=== PATIENT | female | born 1990 | race Caucasian/White ===

== ENCOUNTER 2022-03-19 09:45 | Emergency (ER) | payer BC, MEDICAID ==
[~2022-03-19] VITALS: Ht 165.1 cm; Wt 95.5 kg
[2022-03-19 10:04] VITALS: BP 131/88
[2022-03-19] MEDS ORDERED: PROP10TA10 PO (10:48)
[2022-03-19] MEDS ORDERED: TRAZ-251 PO (10:48)
[2022-03-19] MEDS ORDERED: PRESTIQUE PO (10:48)
[2022-03-19 10:56] LABS: BASOPHILS # (AUTO) 0.1 X10'3 (0-0.2); BASOPHILS % (AUTO) 0.7 % (0-1); EOSINOPHILS % (AUTO) 0.6 % (0-6); HEMATOCRIT 40.2 % (35.0-45.0); HEMOGLOBIN 13.4 g/dl (12.0-16.0); LYMPHOCYTES % (AUTO) 23.5 % (21-51); MEAN CORPUSCULAR HEMOGLOBIN 26.8 PG (27.0-31.0); MEAN CORPUSCULAR HGB CONC 33.3 g/dL (33.0-36.5); MEAN CORPUSCULAR VOLUME 80.5 FL (78-98); MEAN PLATELET VOLUME 8.3 FL (7.4-10.4); MONOCYTES # (AUTO) 0.3 X10'3 (0-0.9); NEUTROPHILS % (AUTO) 71.2 % (42-75); PLATELET COUNT 311 X10'3 (140-440); RED CELL DISTRIBUTION WIDTH 13.9 % (11.5-14.5); WHITE BLOOD COUNT 8.4 X10'3 (4.5-11.0)
[2022-03-19 11:13] LABS: ALANINE AMINOTRANSFERASE 14 U/L (12-78); ALBUMIN/GLOBULIN RATIO 0.7 (1.1-1.5); ALKALINE PHOSPHATASE 76 IU/L (46-116); ANION GAP 9 (8-16); ASPARTATE AMINO TRANSFERASE 14 U/L (10-37); BILIRUBIN,TOTAL 0.2 MG/DL (0.1-1.0); BLOOD UREA NITROGEN 7 MG/DL (7-18); BUN/CREATININE RATIO 9.6 (6.6-38.0); CALCIUM 8.4 MG/DL (8.5-10.1); CHLORIDE 105 MMOL/L (99-107); CREATININE 0.73 MG/DL (0.40-0.90); GLUCOSE 96 MG/DL (70-104); SODIUM 139 MMOL/L (135-145); TOTAL CARBON DIOXIDE 24.6 MMOL/L (24-32); TOTAL PROTEIN 7.1 G/DL (6.4-8.2); eGFR > 90 ML/MIN
[2022-03-19] MEDS ORDERED: propranolol LA 60 MG cap.SA.24H PO SCH (17:00)
[2022-03-19] MEDS ORDERED: propranolol 10mg tablet PO SCH (17:06)
[2022-03-19 17:14] LABS: URINE HCG NEGATIVE (NEG)
[2022-03-19 17:23] LABS: URINE AMPHETAMINE SCREEN NEGATIVE (Neg); URINE BARBITUATE SCREEN NEGATIVE (Neg); URINE BENZODIAZEPINES SCREEN NEGATIVE (Neg); URINE CANNABINOID SCREEN NEGATIVE (Neg); URINE COCAINE SCREEN NEGATIVE (Neg); URINE METHADONE SCREEN NEGATIVE (Neg); URINE OPIATE SCREEN NEGATIVE (Neg); URINE PHENCYCLIDINE SCREEN NEGATIVE (Neg)
--- NOTE | 2022-03-19 18:14 | NUR ---
dinner tray provided, sitting at bed. tolerating well.
[2022-03-19] MEDS ORDERED: traZODone 50mg tablet PO SCH (22:51)
[2022-03-19] MEDS: propranolol 10mg tablet PO SCH (23:18)
--- NOTE | 2022-03-20 00:50 | NUR ---
Patient is sleeping, no distress.
--- NOTE | 2022-03-20 03:05 | NUR ---
Patient is sleeping quietly in a mid fowlers position.
--- NOTE | 2022-03-20 04:26 | NUR ---
Patient sleeps in a mid fowlers position. No signs of distress.
--- NOTE | 2022-03-20 05:49 | NUR ---
This rfp writer spoke with dietary. A gluten free diet is now in place.
--- NOTE | 2022-03-20 06:49 | NUR ---
Patient reclining in bed asleep. No distress observed. Continue to monitor.
[2022-03-20] MEDS ORDERED: venlafaxine 25mg tablet PO SCH (08:00)
--- NOTE | 2022-03-20 08:05 | NUR ---
Patient eating breakfast. No distress observed. Continue to monitor.
[2022-03-20] MEDS: propranolol 10mg tablet PO SCH (08:10)
[2022-03-29] MEDS ORDERED: DESV50TA10 PO (11:34)
== END 2022-03-20 09:46 | disposition home or self-care (01) ==
LOC: ER 09:45
DX: R45.851 Suicidal ideations (principal); Z20.822 Contact with and (suspected) exposure to COVID-19; F32.A Depression, unspecified; Z88.5 Allergy status to narcotic agent
CPT/HCPCS: 36415; 80053; 80305; 81025; 84443; 85025; 87811; 99285

== ENCOUNTER 2023-12-13 15:27 | Emergency (ER) | payer BC ==
[~2023-12-13] VITALS: Ht 165.1 cm; Wt 125.2 kg
[~2023-12-13 15:27] MED LIST: BUPR75TA8 PO; DESV100T6 PO; DIVA-76 PO; DIVA250T4 PO; GABA-530 PO; OLAN10TA3 PO; PRAZ1CAP5 PO; [UNRECOGNIZED DRUG - CODE] PO
[2023-12-13 15:31] VITALS: BP 137/87; PULSE 96; TEMP 98.9; O2SAT 96
[2023-12-13 16:11] VITALS: RESP 16
== END 2023-12-13 17:13 | disposition home or self-care (01) ==
LOC: ER 15:28
DX: S06.0X0A Concussion without loss of consciousness, initial encounter (principal); Z88.8 Allergy status to other drugs, medicaments and biological substances; Z88.5 Allergy status to narcotic agent; Z79.899 Other long term (current) drug therapy; W18.40XA Slipping, tripping and stumbling without falling, unspecified, initial encounter; Y93.89 Activity, other specified; Y92.89 Other specified places as the place of occurrence of the external cause; Y99.8 Other external cause status
CPT/HCPCS: 70450; 99284